=== PATIENT | female | born 1980 | race Caucasian/White ===

== ENCOUNTER 2017-09-27 18:36 | Emergency (ER) | payer SELFPAY ==
[2017-09-27 19:19] LABS: Basophils % (Auto) 0.3 % (0.0-1.8); Eosinophils # (Auto) 0.2 K/mm3 (0.0-0.4); Eosinophils % (Auto) 1.5 % (0.0-4.3); Hematocrit 38.7 % (30.3-42.9); Hemoglobin 12.6 gm/dl (10.1-14.3); Lymphocytes # (Auto) 3.3 K/mm3 (1.2-5.4); Lymphocytes % (Auto) 28.1 % (13.4-35.0); Mean Corpuscular HGB Conc 33 % (30-34); Mean Corpuscular Hemoglobin 26 pg (28-32); Mean Corpuscular Volume 80 fl (79-97); Monocytes # (Auto) 0.7 K/mm3 (0.0-0.8); Monocytes % (Auto) 5.7 % (0.0-7.3); Platelet Count 289 K/mm3 (140-440); Red Blood Count 4.81 M/mm3 (3.65-5.03); Red Cell Distribution Width 14.1 % (13.2-15.2)
[2017-09-27 21:01] LABS: Bacteria,Urine 1+ /HPF (Negative); Bilirubin,Urine NEG (Negative); Blood,Urine LG (Negative); Color,Urine Yellow (Yellow); Mucus,Urine FEW /HPF; Protein,Urine <15 mg/dL mg/dL (Negative); Urobilinogen,Urine < 2.0 mg/dL (<2.0)
[2017-09-27 23:49] VITALS: BP 133/74
--- NOTE | 2017-09-27 23:54 | Ultrasound Report ---
FINAL REPORT EXAM: US OB TRANSVAGINAL HISTORY: vaginal bleeding TECHNIQUE: Ultrasound obstetrical transvaginal PRIORS: None. FINDINGS: There is gestational sac present within the uterus. A yolk sac is identified There is pole length of 9 centimeters corresponding estimated gestational age 8 weeks 3 days with estimated date of delivery May 06 cardiac activity is present with heart rate of 167 beats per minute The fundus of the uterus there is a is 6.0 X 4.3 x 4.6 centimeter complex appearing mass. Etiology is uncertain could reflect pedunculated fibroid. A pelvic kidney is a consideration continued followup for this recommended Right ovary is 3.6 x 2.1 x 3 point centimeters 1.7 centimeter right ovarian cyst noted left ovary is 2.7 x 1.6 x 1.5 centimeters. No free fluid is identified in the cul-de-sac IMPRESSION: Single live intrauterine gestation estimated at 8 weeks 3 days Complex appearing mass at the fundus of the uterus etiology uncertain may reflect pedunculated fibroid. A pelvic kidney is a consideration. Continued followup recommended.
--- NOTE | 2017-09-27 23:55 | Ultrasound Report ---
FINAL REPORT EXAM: US OB < = 14 WEEKS FETUS HISTORY: vaginal bleeding TECHNIQUE: Ultrasound obstetrical transabdominal PRIORS: None. FINDINGS: There is gestational sac present within the uterus. A yolk sac is identified There is pole length of 9 centimeters corresponding estimated gestational age 8 weeks 3 days with estimated date of delivery May 06 cardiac activity is present with heart rate of 167 beats per minute The fundus of the uterus there is a is 6.0 X 4.3 x 4.6 centimeter complex appearing mass. Etiology is uncertain could reflect pedunculated fibroid. A pelvic kidney is a consideration continued followup for this recommended Right ovary is 3.6 x 2.1 x 3 point centimeters 1.7 centimeter right ovarian cyst noted left ovary is 2.7 x 1.6 x 1.5 centimeters. No free fluid is identified in the cul-de-sac IMPRESSION: Single live intrauterine gestation estimated at 8 weeks 3 days Complex appearing mass at the fundus of the uterus etiology uncertain may reflect pedunculated fibroid. A pelvic kidney is a consideration. Continued followup recommended.
--- NOTE | 2017-09-28 00:30 | Emergency Department Report ---
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 Patient states her some small clots that she's passed. Patient denies any severe pain but does have some mild cramping and lower back discomfort. Patient is approximately 8 weeks . Patient denies any fevers chills nausea vomiting diarrhea or dysuria at this time. - Related Data Allergies Allergy/AdvReac Type Severity Reaction Status Date / Time No Known Allergies Allergy Unverified 09/27/17 18:55 ED Review of Systems ROS: Stated complaint: VAGINAL BLEEDING/ Other details as noted in HPI Comment: All other systems reviewed and negative ED Past Medical Hx - Past Medical History Previous Medical History?: No - Surgical History Past Surgical History?: No - Social History Smoking Status: Never Smoker Substance Use Type: None ED Physical Exam - General Limitations: No Limitations General appearance: alert, in no apparent distress - Head Head exam: Present: atraumatic, normocephalic - Eye Eye exam: Present: normal appearance - ENT ENT exam: Present: mucous membranes moist - Neck Neck exam: Present: normal inspection - Respiratory Respiratory exam: Present: normal lung sounds bilaterally. Absent: respiratory distress, wheezes, rales - Cardiovascular Cardiovascular Exam: Present: regular rate, normal rhythm. Absent: systolic murmur, diastolic murmur, rubs, gallop - GI/Abdominal GI/Abdominal exam: Present: soft, normal bowel sounds. Absent: distended, tenderness, guarding, rebound - Extremities Exam Extremities exam: Present: normal inspection - Back Exam Back exam: Present: normal inspection - Neurological Exam Neurological exam: Present: alert, oriented X3 - Psychiatric Psychiatric exam: Present: normal affect, normal mood - Skin Skin exam: Present: warm, dry, intact, normal color. Absent: rash ED Course Vital Signs 09/27/17 09/27/17 18:55 23:43 Temperature 98.4 F Pulse Rate 76 68 Respiratory 18 16 Rate Blood Pressure 149/75 Blood Pressure 133/74 [Right] O2 Sat by Pulse 98 Oximetry ED Medical Decision Making - Lab Data Result diagrams: 09/27/17 19:04 Lab Results 09/27/17 09/27/17 09/27/17 Range/Units 19:04 19:04 19:04 WBC 11.6 H (4.5-11.0) K/mm3 RBC 4.81 (3.65-5.03) M/mm3 Hgb 12.6 (10.1-14.3) gm/dl Hct 38.7 (30.3-42.9) % MCV 80 (79-97) fl MCH 26 L (28-32) pg MCHC 33 (30-34) % RDW 14.1 (13.2-15.2) % Plt Count 289 (140-440) K/mm3 Lymph % (Auto) 28.1 (13.4-35.0) % [place] % (Auto) 5.7 (0.0-7.3) % Eos % (Auto) 1.5 (0.0-4.3) % Baso % (Auto) 0.3 (0.0-1.8) % Lymph # 3.3 (1.2-5.4) K/mm3 Whitley # 0.7 (0.0-0.8) K/mm3 Eos # 0.2 (0.0-0.4) K/mm3 Baso # 0.0 (0.0-0.1) K/mm3 Seg Neutrophils % 64.4 (40.0-70.0) % Seg Neutrophils # 7.5 (1.8-7.7) K/mm3 HCG, Quant [id number] H (0-4) mIU/mL Urine Color (Yellow) Urine Turbidity (Clear) Urine pH (5.0-7.0) Ur Specific [place] (1.003-1.030) Urine Protein (Negative) mg/dL Urine Glucose (UA) (Negative) mg/dL Urine Ketones (Negative) mg/dL Urine Blood (Negative) Urine Nitrite (Negative) Urine Bilirubin (Negative) Urine Urobilinogen (<2.0) mg/dL Ur Leukocyte Esterase (Negative) Urine WBC (Auto) (0.0-6.0) /HPF Urine RBC (Auto) (0.0-6.0) /HPF U Epithel Cells (Auto) (0-13.0) /HPF Urine Bacteria (Auto) (Negative) /HPF Urine Mucus /HPF Blood Type AB POSITIVE Antibody Screen Negative 09/27/17 Range/Units Unknown WBC (4.5-11.0) K/mm3 RBC (3.65-5.03) M/mm3 Hgb (10.1-14.3) gm/dl Hct (30.3-42.9) % MCV (79-97) fl MCH (28-32) pg MCHC (30-34) % RDW (13.2-15.2) % Plt Count (140-440) K/mm3 Lymph % (Auto) (13.4-35.0) % [place] % (Auto) (0.0-7.3) % Eos % (Auto) (0.0-4.3) % Baso % (Auto) (0.0-1.8) % Lymph # (1.2-5.4) K/mm3 [place] # (0.0-0.8) K/mm3 Eos # (0.0-0.4) K/mm3 Baso # (0.0-0.1) K/mm3 Seg Neutrophils % (40.0-70.0) % Seg Neutrophils # (1.8-7.7) K/mm3 HCG, Quant (0-4) mIU/mL Urine Color Yellow (Yellow) Urine Turbidity Clear (Clear) Urine pH 7.0 (5.0-7.0) Ur Specific [place] 1.013 (1.003-1.030) Urine Protein <15 mg/dl (Negative) mg/dL Urine Glucose (UA) Neg (Negative) mg/dL Urine Ketones Neg (Negative) mg/dL Urine Blood Lg (Negative) Urine Nitrite Neg (Negative) Urine Bilirubin Neg (Negative) Urine Urobilinogen < 2.0 (<2.0) mg/dL Ur Leukocyte Esterase Neg (Negative) Urine WBC (Auto) 5.0 (0.0-6.0) /HPF Urine RBC (Auto) 15.0 (0.0-6.0) /HPF U Epithel Cells (Auto) 1.0 (0-13.0) /HPF Urine Bacteria (Auto) 1+ (Negative) /HPF Urine Mucus Few /HPF Blood Type Antibody Screen - Radiology Data Radiology results: report reviewed Ultrasound transvaginal shows 8 week 3 day IUP. There is a small fibroid present as well. No other abnormalities are seen. - Medical Decision Making Been diagnosed as a threatened miscarriage. The patient's fibroid could be a factor in her bleeding at this time. Patient still has been cautioned that she needs to rest have pelvic rest and follow-up with a after school program teacher. Critical care attestation.: If time is entered above; I have spent that time in minutes in the direct care of this critically ill patient, excluding procedure time. ED Disposition Clinical Impression: Threatened miscarriage Disposition: DC- TO HOME OR SELFCARE Is pt being admited?: No Does the pt Need Aspirin: No Condition: Stable Referrals: YOBANY DURAN NP [Primary Care Provider] - 3-5 Days
== END 2017-09-28 00:43 | disposition home or self-care (01) ==
LOC: ED 18:36
DX: O20.0 Threatened abortion (principal); Z3A.08 8 weeks gestation of pregnancy
CPT/HCPCS: 36415; 76801; 76817; 81001; 84702; 85025; 86850; 86900; 86901; 99284